=== PATIENT | female | born 1960 | race Caucasian/White ===

== ENCOUNTER → 2020-06-18 06:51 | Outpatient (CLI) | payer MEDICARE, MEDICAID, SELFPAY ==
[2020-06-18 19:41] LABS: SARS-CoV-2 RNA PCR Negative
== END ==
PROVIDERS: PCP Family Medicine; Visit Provider Nurse Practitioner Family
DX: R68.89 Other general symptoms and signs (principal); Z20.822 Contact with and (suspected) exposure to COVID-19
CPT/HCPCS: C9803; U0003; U0005

== ENCOUNTER → 2020-06-30 13:52 | Outpatient (CLI) | payer MEDICARE, MEDICAID, SELFPAY ==
--- NOTE | ~2020-06-30 | XR_ITS ---
EXAMINATION: XR chest 2V DATE: 06/30/2020 14:06 INDICATION: Wheezing and cough. TECHNIQUE: Frontal and lateral views of the chest were obtained. COMPARISON: Chest 2 views 06/27/2011 FINDINGS: The chest demonstrates clear lungs without pneumonia, pleural effusion, or pneumothorax. Th e heart size is normal. There are epidural electrodes in thoracic spine. IMPRESSION: 1. No acute cardiopulmonary disease. Reviewed, dictated and finalized at location A. 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
== END ==
PROVIDERS: PCP Nurse Practitioner Family; Visit Provider Nurse Practitioner Family
DX: R06.2 Wheezing (principal)
CPT/HCPCS: 71046

== ENCOUNTER 2020-08-19 10:42 | Outpatient (CLI) | payer MEDICARE, MEDICAID, SELFPAY ==
--- NOTE | ~2020-08-19 | CT_ITS ---
EXAMINATION:CT lung screening DATE: 08/19/2020 11:01 INDICATION: Personal history of tobacco dependence. Current smoker with 34 pack year history. TECHNIQUE: Computed tomography (CT) of the chest was performed without intravenous contrast. Automate d exposure control and iterative reconstruction technique were employed. The dose-length product (DLP ) was 203.86 mGy-cm. COMPARISON: None. FINDINGS: There is mild scarring at the lung apices. There is a 5 mm nodule in right upper lobe. Ther e is mild emphysema. There is mosaic attenuation in the lungs, likely small airways disease. There is minimal atelectasis bilaterally. There are multiple 1-2 mm nodules in the lungs with an upper lobe p redominance. No pleural effusion. The heart size is normal. There are coronary artery calcifications. No pericardial effusion. There are changes of cholecystectomy. There is a 1.9 cm cyst in left kidney . Epicardial electrodes are noted in thoracic spine. There is mild thoracic spondylosis. IMPRESSION: 1. Lung-RADS category 2: Benign appearance or behavior. Continue annual screening with noncontrast lo w-dose chest CT in 12 months. Reviewed, dictated and finalized at location B. IMPRESSION: 1. Lung-RADS category 2: Benign appearance or behavior. Continue annual screeni ng with noncontrast low-dose chest CT in 12 months.
== END 2020-08-19 10:43 | disposition home or self-care (01) ==
PROVIDERS: PCP Family Medicine; Visit Provider Family Medicine
DX: Z12.2 Encounter for screening for malignant neoplasm of respiratory organs (principal); Z87.891 Personal history of nicotine dependence
CPT/HCPCS: 71271

== ENCOUNTER 2020-08-20 13:00 | Outpatient (CLI) | payer MEDICARE, MEDICAID, SELFPAY ==
--- NOTE | ~2020-08-20 | DEXA_ITS ---
Bone Density Report Name: Elham Lopez Age: 60 Sex: Female Ethnicity: White Date of : 1960 Indication: postmenopausal; height loss; asthma or emphysema; Referring Provider: Edda Schneider Study: Bone densitometry was performed. Exam Date: August 20, 2020 Accession number: [id number] Bone Density: Region BMD T-score Z-score Classification AP Spine (L1, L2, L3) 1.148 1.2 2.6 Normal Femoral Neck (Left) 0.820 -0.3 1.0 Normal Total Hip (Left) 1.020 0.6 1.6 Normal Total Hip Bilateral Avg 1.056 0.9 1.9 Normal Femoral Neck (Right) 0.877 0.3 1.5 Normal Total Hip (Right) 1.090 1.2 2.2 Normal World Health Organization criteria for BMD impression classify patients as: Normal (T-score at or above -1.0), Osteopenia (T-score between -1.0 and -2.5), or Osteoporosis (T-score at or below -2.5). 10-year Fracture Risk: FRAX not reported because: All T-scores for Spine Total, Hip Total, Femoral Neck at or above -1.0 Clinical Information Provided by Patient: Smokes Has used the following medications: Vitamin D Has the following medical conditions: Asthma or Emphysema Patient maximum height was 64.7 Menopause Age: 50 No regular weight bearing exercise Drinks caffeinated beverages Onset of menses at age 9 Number of children 0 Impression: The patient has normal bone mass. The patient has risk factors, including: smoking. Discussion: BONE DENSITY IS ABOVE THE MINIMUM DESIRABLE LEVEL AT ALL SKELETAL SITES TESTED. This patient?s bone mineral density is above the minimum desirable level (T-score -1.0 or better) at all sites measured. The patient should follow a healthful lifestyle (good nutrition with adequate calcium and vitamin D, and appropriate weight-bearing exercise). Follow-Up: Consider repeating this study in 5 years or sooner if there is some new clinical indication. Reported by: [facility] on 08/20/2020 1:32:00 PM. Reviewed, dictated and finalized at location AMartinez DE OLIVEIRA
== END 2020-08-20 13:01 | disposition home or self-care (01) ==
PROVIDERS: PCP Family Medicine; Visit Provider Family Medicine
DX: Z78.0 Asymptomatic menopausal state (principal)
CPT/HCPCS: 77080

== ENCOUNTER → 2020-09-25 09:39 | Outpatient (CLI) | payer MEDICARE, MEDICAID, SELFPAY ==
--- NOTE | ~2020-09-25 | XR_ITS ---
EXAMINATION: XR knee LT 3V DATE: 09/25/2020 11:53 INDICATION: Joint disorder. TECHNIQUE: 3 views of left knee were obtained. COMPARISON: None. FINDINGS: Bone alignment is normal. No fracture. There is mild tricompartmental osteoarthritis. No kn ee joint effusion. IMPRESSION: 1. Mild left knee osteoarthritis. Reviewed, dictated and finalized at location B.
--- NOTE | ~2020-09-25 | XR_ITS ---
EXAMINATION: HAND-JUSTA ARTHRITIS 3+VIEWS DATE: 09/25/2020 11:52 INDICATION: Arthritis TECHNIQUE: Posteroanterior, lateral, and oblique views of the left and of the right hands as well as a ballcatchers view of both hands were obtained. COMPARISON: None. FINDINGS: There is flexion at the bilateral fifth proximal interphalangeal joints. Bone alignment is otherwise normal at both hands. No fractures. Polyarticular osteoarthritis at both hands, moderate severity at the left first metacarpophalangeal joint and otherwise mild at the bilateral triscaphe, first carpome tacarpal, right first metacarpophalangeal and multiple bilateral interphalangeal joints. No cortical erosions to suggest inflammatory arthritis. Soft tissues are unremarkable. IMPRESSION: 1. Symmetric flexion at the bilateral first proximal interphalangeal joints which could be either eit her transitional artifact of positioning or due to Dupuytren's contractures. 2. Typical distribution of relatively symmetric polyarticular osteoarthritis of both hands, moderate severity at the left first metacarpophalangeal joint and otherwise mild. Reviewed, dictated and finalized at location A. IMPRESSION: 1. Symmetric flexion at the bilateral first proximal interphalangeal joints whi ch could be either either transitional artifact of positioning or due to Dupuyt bar's contractures. 2. Typical distribution of relatively symmetric polyarticular osteoarthritis of both hands, moderate severity at the left first metacarpophalangeal joint and otherwise mild.
--- NOTE | ~2020-09-25 | XR_ITS ---
EXAMINATION: XR lumbar spine min 4V DATE: 09/25/2020 11:52 INDICATION: Arthritis, low back pain TECHNIQUE: Anteroposterior and lateral views of the lumbar spine, and cone-down lateral view of the l umbosacral junction were obtained. COMPARISON: None. FINDINGS: There is grade 2 anterolisthesis of L5 on S1. Vertebral body alignment is otherwise maintai kim. There is no fracture. There is severe loss of intervertebral disc space height at L5-S1. A neuro stimulator device is implanted in the posterior subcutaneous tissues on the right. Its leads entering the central spinal canal at the T12-L1 level. There appear to be bilateral pars defects at L5. Surgi sarah clips in the right upper quadrant are likely from prior cholecystectomy. Calcified atherosclerosi s is noted. IMPRESSION: 1. Grade 2 anterolisthesis of L5 on S1 with possible L5 pars defects. No acute findings. Reviewed, dictated and finalized at location A.
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
--- NOTE | ~2020-09-25 | XR_ITS ---
EXAMINATION: XR knee RT 3V DATE: 09/25/2020 11:51 INDICATION: Joint disorder. TECHNIQUE: 3 views of right knee were obtained. COMPARISON: None. FINDINGS: Bone alignment is normal. No fracture. There is mild tricompartmental osteoarthritis. No kn ee joint effusion. IMPRESSION: 1. Mild right knee osteoarthritis. Reviewed, dictated and finalized at location B.
== END ==
PROVIDERS: PCP Family Medicine; Visit Provider Nurse Practitioner Family
DX: M47.817 Spondylosis without myelopathy or radiculopathy, lumbosacral region (principal); M18.0 Bilateral primary osteoarthritis of first carpometacarpal joints; M19.042 Primary osteoarthritis, left hand; M19.041 Primary osteoarthritis, right hand; M20.11 Hallux valgus (acquired), right foot; M20.5X1 Other deformities of toe(s) (acquired), right foot; M19.072 Primary osteoarthritis, left ankle and foot; M19.071 Primary osteoarthritis, right ankle and foot; M21.42 Flat foot [pes planus] (acquired), left foot; M17.0 Bilateral primary osteoarthritis of knee; R21 Rash and other nonspecific skin eruption
CPT/HCPCS: 72110; 73130; 73562; 73620

== ENCOUNTER → 2020-12-12 03:49 | Outpatient (CLI) | payer MEDICARE, MEDICAID, SELFPAY ==
[2020-12-13 04:02] LABS: SARS-CoV-2 RNA PCR Negative
== END ==
PROVIDERS: PCP Family Medicine; Visit Provider Nurse Practitioner Family
DX: Z20.822 Contact with and (suspected) exposure to COVID-19 (principal)
CPT/HCPCS: C9803; U0003; U0005

== ENCOUNTER 2022-03-10 10:13 | Outpatient (CLI) | payer MEDICARE, MEDICAID, SELFPAY ==
--- NOTE | 2022-03-10 14:04 | WPDPFTINT ---
PFT Procedure Performed PFT Procedure Performed Spirometry with Pre/Post Bronchodilator Plethysmography (Lung Vol) Diffusing Cap (DLCO) Flow Vol Loop Spirometry w/o Bronchodil PFT Interpretation Lung volumes were measured with the body plethysmography method. Lung volumes are essentially unremarkable. Spirometry showed diminished expiratory flow rates and a diminished FEV1 to FVC ratio 65%, indicative of obstructive airway disease. Following administration of a bronchodilator, there was no significant increase in expiratory flow rates. Lung diffusion capacity is within the normal range at 78% predicted. The flow-volume loop is consistent with obstructive airway disease. Impression: Moderate obstructive airway disease with no response to bronchodilators on this testing. Lung diffusion capacity within the normal range.
== END 2022-03-10 10:14 | disposition home or self-care (01) ==
LOC: ANHPFT 10:14
PROVIDERS: PCP Family Medicine; Visit Provider Family Medicine
DX: J45.20 Mild intermittent asthma, uncomplicated (principal); R94.2 Abnormal results of pulmonary function studies
CPT/HCPCS: 94060; 94726; 94729

== ENCOUNTER 2022-12-29 10:35 | Outpatient (CLI) | payer MEDICARE, MEDICAID, SELFPAY ==
[2022-12-29 12:20] LABS: Strep Group A RT-PCR NOT DETECTED (Negative)
[2022-12-29 15:35] LABS: Influenza A QL RT-PCR Negative (Negative); Influenza B QL RT-PCR Negative (Negative); RSV RNA, RT-PCR Negative (Negative); SARS-CoV-2 RNA PCR Negative (Negative)
== END 2022-12-29 10:36 | disposition home or self-care (01) ==
LOC: ANHLAB 10:36
PROVIDERS: PCP Family Medicine; Visit Provider Family Medicine
DX: R50.9 Fever, unspecified (principal); Z20.822 Contact with and (suspected) exposure to COVID-19
CPT/HCPCS: 87637; 87651

== ENCOUNTER 2023-07-21 14:36 | Outpatient (CLI) | payer MEDICARE, MEDICAID, SELFPAY ==
--- NOTE | ~2023-07-21 | XR_ITS ---
Left Hand Technique: PA, oblique, and lateral views were obtained. Clinical History: Injury Findings: There is an oblique, intra-articular, displaced fracture along the dorsal aspect of the bas e of the fifth middle phalanx. There is an oblique, mildly displaced fracture involving the distal po rtion of the fourth middle phalanx. No definite intra-articular extension of this fracture.. There is mild degenerative change of the first metacarpophalangeal joint. Soft tissues are unremarkable. Impression: Oblique, and articular, displaced fracture involving the dorsal aspect of the base the fifth middle p halanx. Oblique, dorsal displaced fracture of the fourth middle phalangeal shaft. Reviewed, dictated and finalized at location M. Impression: Oblique, and articular, displaced fracture involving the dorsal aspect of the b ase the fifth middle phalanx. Oblique, dorsal displaced fracture of the fourth middle phalangeal shaft.
--- NOTE | ~2023-07-21 | XR_ITS ---
Cervical Spine: AP, lateral, open-mouth views Clinical History: Pain Findings: No acute fracture seen. There is 3 mm anterolisthesis of C3 over C4. There is severe degene rative disc narrowing throughout cervical spine. There is moderate to severe facet arthropathy throug hout. Pre-vertebral soft tissues are unremarkable. Impression: No acute fracture seen. Consider CT for more sensitive evaluation, as indicated. 3 mm anterolisthesis of C3 over C4. Severe degenerative spondylosis throughout cervical spine. Reviewed, dictated and finalized at [facility]. Impression: No acute fracture seen. Consider CT for more sensitive evaluation, as indicated . 3 mm anterolisthesis of C3 over C4. Severe degenerative spondylosis throughout cervical spine.
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
== END 2023-07-21 14:37 ==
PROVIDERS: PCP Family Medicine; Visit Provider Nurse Practitioner Family
DX: S19.9XXA Unspecified injury of neck, initial encounter (principal); S37.031A Laceration of right kidney, unspecified degree, initial encounter; S69.92XA Unspecified injury of left wrist, hand and finger(s), initial encounter; T14.8XXA Other injury of unspecified body region, initial encounter; M43.02 Spondylolysis, cervical region; S62.92XA Unspecified fracture of left hand, initial encounter for closed fracture; M85.88 Other specified disorders of bone density and structure, other site
CPT/HCPCS: 72040; 73030; 73120

== ENCOUNTER 2023-07-28 12:36 | Outpatient (CLI) | payer MEDICARE, MEDICAID, SELFPAY ==
--- NOTE | ~2023-07-28 | CT_ITS ---
EXAMINATION: CT abdomen pelvis wo con DATE: 07/28/2023 13:13 INDICATION: Laceration to the right kidney. TECHNIQUE: Computed tomography (CT) of the abdomen and pelvis was performed without intravenous contr ast. The dose-length product was 1085.44 mGy-cm. Automated exposure control and iterative reconstruct ion technique were employed. COMPARISON: None. FINDINGS: Lung bases are unremarkable. Heart size normal. No significant pleural or pericardial effus ion. There is a 2 cm exophytic right renal cyst. There are cholecystectomy clips. There is 2.3 cm lef t renal cyst. The spleen, pancreas, adrenal glands are unremarkable. Nonobstructive bowel gas pattern . No contrast was administered to assess for renal laceration. There is abnormal soft tissue masses i n the anterior abdominal wall of the right lower abdomen, largest measuring 7.6 x 4.8 cm. A midline m ass measures 5.9 x 3.6 cm with fluid density. No abnormal pelvic masses or fluid collections. No sign ificant vascular abnormality. There is grade 2 spondylolisthesis at L5-S1 with complete loss of disc space at this level. IMPRESSION: 1. Lobulated soft tissue masses anterior abdominal wall soft tissues of the lower abdomen. No contras t administered. Considerations include posttraumatic hematoma, infection and less likely malignancy. Correlate for history of recent trauma or infection. 2: Bilateral renal cysts. Reviewed, dictated and finalized at location B. IMPRESSION: 1. Lobulated soft tissue masses anterior abdominal wall soft tissues of the low er abdomen. No contrast administered. Considerations include posttraumatic rolan art, infection and less likely malignancy. Correlate for history of recent tra susanne or infection. 2: Bilateral renal cysts.
== END 2023-07-28 12:37 ==
PROVIDERS: PCP Family Medicine; Visit Provider Nurse Practitioner Family
DX: S37.031A Laceration of right kidney, unspecified degree, initial encounter (principal); V89.2XXA Person injured in unspecified motor-vehicle accident, traffic, initial encounter; N28.1 Cyst of kidney, acquired; R19.09 Other intra-abdominal and pelvic swelling, mass and lump
CPT/HCPCS: 74176

== ENCOUNTER 2023-08-03 15:27 | Outpatient (CLI) | payer MEDICARE, MEDICAID, SELFPAY ==
--- NOTE | ~2023-08-03 | CT_ITS ---
EXAMINATION: CT hand LT wo con DATE: 08/03/2023 15:46 INDICATION: Left hand fracture. TECHNIQUE: Computed tomography (CT) of the left hand was performed without intravenous contrast. Auto mated exposure control and iterative reconstruction technique were employed. The dose-length product was 553.59 mGy-cm. COMPARISON: Left hand radiographs 07/21/2023 FINDINGS: Bone alignment is normal. There is a comminuted fracture of base of fifth middle phalanx. T he main distal fracture fragment demonstrates 4 mm proximal displacement and 2 mm palmar displacement . There is a comminuted fracture of neck and diaphysis of fourth middle phalanx. The main distal frac ture fragment demonstrates one shaft width dorsal displacement, 5 degrees dorsal angulation, and shor tening. There is mild osteoarthritis of triscaphe joint and first carpometacarpal joint. There is sev ere osteoarthritis of first metacarpophalangeal joint. There is mild osteoarthritis of some of the in terphalangeal joints. There is severe osteoarthritis of fifth distal interphalangeal joint. IMPRESSION: 1. Comminuted fracture of base of fifth middle phalanx. 2. Comminuted fracture of fourth middle phalanx. Reviewed, dictated and finalized at location A.
--- NOTE | ~2023-08-03 | XR_ITS ---
Left Hand Technique: PA, oblique, and lateral views were obtained. Clinical History: Fracture Findings: There is an acute, oblique, mildly displaced fracture of the distal shaft of the fourth mid dle phalanx. No intra-articular extension. There is an oblique, intra-articular, displaced fracture o f the dorsal aspect of the base of the fifth middle phalanx, with volar subluxation of the dominant p ortion of the fifth middle phalanx. No other fracture or dislocation seen. Joint spaces are otherwise preserved. Soft tissues are unremarkable. Impression: Acute, oblique, assess fracture of the distal shafts of the fourth middle phalanx. Oblique, intra-articular, displaced fracture of the dorsal aspect of the base the fifth middle phalan x, as detailed above. Reviewed, dictated and finalized at location M. Impression: Acute, oblique, assess fracture of the distal shafts of the fourth middle phala nx. Oblique, intra-articular, displaced fracture of the dorsal aspect of the base t he fifth middle phalanx, as detailed above.
== END 2023-08-03 15:28 | disposition home or self-care (01) ==
LOC: ANHIMG 15:29
PROVIDERS: PCP Family Medicine; Visit Provider Plastic Surgery
DX: S62.92XA Unspecified fracture of left hand, initial encounter for closed fracture (principal)
CPT/HCPCS: 73130; 73200

== ENCOUNTER 2023-09-05 10:51 | Outpatient (CLI) | payer MEDICARE, MEDICAID, SELFPAY ==
--- NOTE | ~2023-09-05 | XR_ITS ---
Left Hand Technique: PA, oblique, and lateral views were obtained. Clinical History: Fracture COMPARISON: 08/03/2023 Findings: Mild interval healing of displaced fracture with intra-articular extension at the base of t he fifth middle phalanx. There is persistent volar subluxation of the majority of the fifth middle ph alanx. There is partial interval healing of oblique mildly displaced fracture of the fourth middle ph alanx, with early callus formation. There is now more radiographically apparent transverse healing leonard bacute fractures the proximal shaft of the fifth proximal phalanx, essentially nondisplaced. Soft tis sues are unremarkable. Impression: Routine interval healing of fractures of the fourth and fifth middle phalanges. The fifth middle phal angeal fracture is intra-articular, and there is persistent volar subluxation of the majority of the fifth middle phalanx. Additional subacute healing transverse nondisplaced fracture of the proximal shaft of the fifth proxi mal phalanx. This fracture was radiographically occult on prior radiographs. Reviewed, dictated and finalized at [facility]. Impression: Routine interval healing of fractures of the fourth and fifth middle phalanges. The fifth middle phalangeal fracture is intra-articular, and there is persiste nt volar subluxation of the majority of the fifth middle phalanx. Additional subacute healing transverse nondisplaced fracture of the proximal sh aft of the fifth proximal phalanx. This fracture was radiographically occult on prior radiographs.
== END 2023-09-05 10:52 | disposition home or self-care (01) ==
PROVIDERS: PCP Family Medicine; Visit Provider Physician Assistant Surgical
DX: S62.625D Displaced fracture of middle phalanx of left ring finger, subsequent encounter for fracture with routine healing (principal); S62.627D Displaced fracture of middle phalanx of left little finger, subsequent encounter for fracture with routine healing; X58.XXXD Exposure to other specified factors, subsequent encounter
CPT/HCPCS: 73130

== ENCOUNTER 2024-02-01 00:07 | Day surgery (SDC) | payer MEDICARE, MEDICAID, SELFPAY ==
[2024-01-10 13:53] VITALS: BMI 39.7
[2024-02-01 09:23] VITALS: BP 139/84; PULSE 99; RESP 18; TEMP 36.2; O2SAT 96; BMI 36.1
[2024-02-01] MEDS: LACTATED RINGERS 1,000 ML 150 ML IV CONT (09:34)
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
[2024-02-01] MEDS: SIMETHICONE ORAL SUSPENSION 20 MG/0.3 ML 30 ML BOTTLE 0.6 ML IRRIGATION (10:16)
[2024-02-01 10:31] VITALS: BP 103/68; PULSE 95; RESP 22; O2SAT 96
[2024-02-01 10:41] VITALS: BP 125/79; PULSE 80; RESP 23; O2SAT 94
[2024-02-01 10:51] VITALS: BP 152/83; PULSE 80; RESP 20; O2SAT 100
== END 2024-02-01 10:58 | disposition home or self-care (01) ==
PROVIDERS: PCP Family Medicine; Referring Provider Nurse Practitioner; Visit Provider Internal Medicine Gastroenterology
PROC: 0DJD8ZZ Inspection of Lower Intestinal Tract, Via Natural or Artificial Opening Endoscopic (ICD-10-PCS; CPT 45378; principal; 2024-02-01 10:00)
DX: Z12.11 Encounter for screening for malignant neoplasm of colon (principal); Z86.0100 Personal history of colon polyps, unspecified; I10 Essential (primary) hypertension; E78.5 Hyperlipidemia, unspecified; E03.9 Hypothyroidism, unspecified; L40.50 Arthropathic psoriasis, unspecified; L40.9 Psoriasis, unspecified; G47.33 Obstructive sleep apnea (adult) (pediatric); M05.89 Other rheumatoid arthritis with rheumatoid factor of multiple sites; K21.9 Gastro-esophageal reflux disease without esophagitis; J45.909 Unspecified asthma, uncomplicated; F41.9 Anxiety disorder, unspecified; M81.0 Age-related osteoporosis without current pathological fracture; E55.9 Vitamin D deficiency, unspecified; F17.210 Nicotine dependence, cigarettes, uncomplicated; E66.9 Obesity, unspecified; Z68.36 Body mass index [BMI] 36.0-36.9, adult; Z79.51 Long term (current) use of inhaled steroids
CPT/HCPCS: G0105; J2003; J2704; J7120

== ENCOUNTER 2024-06-27 12:42 | Outpatient (CLI) | payer MEDICARE, MEDICAID, SELFPAY ==
--- OUTSIDE RECORDS SUMMARY | 2024-06-27 14:10 | XMS_ITS | Referral Summary ---
Author Organization [facility] Address [address] [place] [address] Care Team Providers Care Executive Recruiter Name Role Phone Carlton Schneider MD Primary Care Provider Allergies Active Allergy Reactions Criticality Noted Date Comments Amoxicillin Itching,Rash Medium 05/19/2018 Patient stated can take if given Benadryl . Cefadroxil Itching,Rash Medium 05/19/2018 Patient stated can take if given Benadryl . Cephalexin Itching,Rash Medium 05/19/2018 Patient stated can take if given Benadryl . Penicillins Itching,Rash Medium 05/19/2018 Patient stated can take if given Benadryl . Medications HYDROcodone-rand taminophen (NORCO) 10-325 mg per tabletIndicatio ns:Pain every 4 (four) hours as needed. 05/17/2018 Active levothyroxine (SYNTHROID, LEVOTHROID) 150 mcg tablet daily. 1 04/07/[address] (PROTONIX) 20 mg EC tablet daily. 2 05/08/2018 Active POTASSIUM CHLORIDE ER 10 mEq CR capsule daily. 1 04/07/2018 Acti ve furosemide (LASIX) 40 mg tablet Take 40 mg by mouth daily. Active PNV 16-iron fum,ps-folic-om eg3 35-1-200 mg capsuleIndicati ons:stop 5 days before surgery Take by mouth daily. Active cholecalciferol (VITAMIN D-3) 5,000 unit tablet daily. Active fish oil-dha-epa 1,200-144-216 mg capsuleIndicati ons:stop 5 days before surgery Take 1 capsule by mouth daily. Active ibuprofen (ADVIL,MOTRIN) 800 mg tabletIndicatio ns:stop 5 days before surgery Take 800 mg by mouth every 6 (six) hours as needed for pain. Active busPIRone (BUSPAR) 5 mg tabletIndicatio ns:Generalized Anxiety Disorder Take 5 mg by mouth 3 (three) times a day. Active Active Problems Problem Noted Date Diagnosed Date Spondylolisthesis at L5-S1 level 05/18/2018 Overview (05/18/2018): Added automatically from request for surgery [id number] Social History Tobacco Use Types Packs/Day Years Used Date Smoking Tobacco: Every Day Cigarettes Smokeless Tobacco: Never Tobacco Cessation:Ready to Q uit: Yes; Counseling Given: Yes Alcohol Use Standard Drinks/Week Comments No 0 (1 standard drink = 0.6 oz pur e alcohol) Comments No Sex and Gender Information Value Date Recorded Sex Assigned at Not on file Legal Sex Female 9:20 AM ORNAMENTAL METAL ERECTOR Gender Identity Not on file Sexual Orientation Not on file Last Filed Vital Signs Vital Sign Reading Time Taken Comments Blood Pressure 168/88 05/26/2018 10:32 AM ORNAMENTAL METAL ERECTOR Pulse 102 05/26/2018 10:32 AM ORNAMENTAL METAL ERECTOR Temperature 36.3 C (97.3 F) 05/26/2018 10:32 AM ORNAMENTAL METAL ERECTOR Respiratory Rate 24 05/26/2018 10:32 AM ORNAMENTAL METAL ERECTOR Oxygen Saturation 93% 05/26/2018 10:32 AM ORNAMENTAL METAL ERECTOR Inhaled Oxygen Concentration - - Weight 104.3 kg (230 lb) 08/25/2020 1:05 PM CDT Height 160 cm (5' 3 ) 08/25/2020 1:05 PM CDT Body Mass Index 40.74 08/25/2020 1:05 PM CDT Plan of Treatment Not on file Medical Devices Implanted Type Area Quality Improvement Consultant Device Identifier Shelf Expiration Date Model / Serial / Lot [employer] 1192 [employer] [place] Lead - [id number] Implanted:Qty: 2 on 05/26/2018 by Jack Herrera MD at [facility] N/A: Spine Thoracic [employer] 05/02/2020 1192 / / [id number] [employer] [id number] Octrode 60cm 8 Electrode Lead Percutaneous Kit Neurostimulator - [id number] Implanted:Qty: 1 on 05/26/2018 by Jack Herrera MD at [facility] N/A: Spine Thoracic [employer] 02/16/2020 [id number] / / [id number] [employer] 3186ans Octrode 60cm 8 Electrode Lead Percutaneous Kit Neurostimulator - [id number] Implanted:Qty: 1 on 05/26/2018 by Jack Herrera MD at [facility] N/A: Spine Thoracic [employer] 02/16/2020 [id number] / / [id number] [employer] 3662 Proclaim Elite 2.63inx1.98in 7 Ipg Implantable Recharge Free - [id number] Implanted:Qty: 1 on 05/26/2018 by Jack Herrera MD at [facility] N/A: Back [employer] 03/06/2020 3662 / / [id number] Procedures Procedure Name Priority Date/Time Associated Diagnosis Comments SCREENING MAMMOGRAM BILATERAL W PRECIOUS Schedule Routine, Read Routine (OP Routine) 12/30/2022 1:52 PM CDT Screening mammogram, encounter for COLONOSCOPY 08/18/2012 12:00 AM CDT from Last 3 Months or Most Recently Relevant to Health Maintenance Results * Screening Mammogram Bilateral W Precious (12/30/2022 1:52 PM CDT) Anatomical Region Laterality Modality Breast Bilateral Mammography 12/30/2022 2:54 PM CDT Impressions 12/30/2022 2:54 PM CDT There is no mammographic evidence of malignancy. A 1 year screening mammogram is recommended. BI-RADS: 1 - Negative. The patient has been or will be contacted. The patient will be entered into a reminder system with a target due date of 1 year for her next mammogram. Electronically signed by: ALEJANDRO Blake 12/30/2022 2:54 PM CDT EXAMINATION: SCREENING MAMMOGRAM BILATERAL W PRECIOUS ORDERING HEALTHCARE PROVIDER: SELF SCREENING MAMMOGRAM HISTORY: Routine screening mammography. COMPARISON: 08/25/2020, 03/13/2018, 08/02/2016, 06/30/2015. TECHNIQUE: CC and MLO views of both breasts were obtained with digital technique using digital breast tomosynthesis with C view. Computer aided detection was utilized. FINDINGS: DENSITY: The breasts have scattered areas of fibroglandular density. BREASTS: There is no new suspicious finding in either breast on mammogram. us Self Screening Mammogram IMG MAMMO PROCEDURES Fi nal Result * COLONOSCOPY (08/18/2012 12:00 AM CDT) Anatomical Region Laterality Modality Other Narrative 08/18/2012 12:00 AM CDT Ordered by an unspecified provider. Procedure Note Provider, MD Za - 08/18/2012 12:00 AM CDT PROCEDURE REPORT Patient: KAREN LOPEZ Account: [id number] Room No: : 1960 Patient Type: [facility] Attend.: Lashawn Parker M.D. Admit Date: 08/18/2012 Dict.: Lashawn Parker M.D. Disch. Date: 08/18/2012 NAME OF PROCEDURE: COLONOSCOPY BRIEF HISTORY AND PHYSICAL: The patient is a 52-year-old white female.Last colonoscopy was 2005. The patient has history of colon polyps. Nofamily history of colon cancer. PROCEDURE: Sedation was provided by anesthesia service. The procedureof colonoscopy including the indications and possible complications ofbleeding, infection, and perforation requiring surgery was discussed with thepatient and consent was obtained. Rectal exam prior to colonoscopy was unremarkable.The scope was introduced into the rectum and advanced to the cecum which was identified by the ileocecal valve and the appendiceal orifice. Theterminal ileum was intubated and appeared normal. The cecum, ascending colon,and transverse colon were unremarkable. The descending colon wasunremarkable. There were 3 small 3 mm to 5 mm semisessile or flat polyps noted in thesigmoid colon. All were removed by cold biopsy forceps. The rectum wasunremarkable. Retroflexion in the rectum noted with small internal hemorrhoids. GI IMPRESSION 1. Three small flat polyps with benign appearance in the sigmoid colonremoved by cold biopsy forceps. 2. Small internal hemorrhoids. RECOMMENDATIONS 1. Follow pathology report. 2. Repeat colonoscopy in five years if any polyp is adenoma. Lashawn Parker M.D. CATARINO/paulo TD: 08/18/2012 22:09 CC: Dr. Beatrice Rahman Authenticated by Lashawn Parker MD On 09/03/2012 08:50:11 PM Historical Provider ENDOSCOPY PROCEDURES Devora l Result from Last 3 Months or Most Recently Relevant to Health Maintenance Insurance MEDICARE [facility] MEDICARE IDPA Care Teams Executive Recruiter Relationship Specialty Start Date End Date Carlton Schneider MD PCP - General 08/25/20
--- OUTSIDE RECORDS SUMMARY | 2024-06-27 14:10 | XMS_ITS | Clinical Summary ---
Author Organization [facility] Address [address] [place] [address] Care Team Providers Care Layboy Tender Name Role Phone Carlton Schneider MD Primary [...] (05/18/2018): Added automatically from request for surgery [id number] Surgical History Surgery Date Site/Laterality Comments CHOLECYSTECTOMY BILATERAL TEMPOROMANDIBULAR JOINT ARTHROPLASTY KNEE ARTHROSCOPY Left and left foot tendon repair BREAST BIOPSY 05/02/1989 - 05/01/1990 Left benign Medical History Medical History Date Comments Hyperlipidemia Hypertension improved and no medications 05/19/18 Asthma Seasonal Induced GERD (gastroesophageal reflux disease) Hypothyroidism Neuropathy (CMS/HCC) feet Arthritis back, right hip and pelvis Gout DJD (degenerative joint disease) Family History Medical History Relation Name Comments Breast cancer Cousin paternal Relation Name Status Comments Cousin paternal Alive Social History Tobacco Use Types Packs/Day Years Used Date Smoking Tobacco: Every Day Cigarettes Smokeless Tobacco: Never Tobacco Cessation:Ready to Q uit: Yes; Counseling Given: Yes Alcohol Use Standard Drinks/Week Comments No 0 (1 standard drink = 0.6 oz pur e alcohol) Comments No Sex and Gender Information Value Date Recorded Sex Assigned at Not on file Legal Sex Female 9:20 AM WEAVER HAND Gender Identity Not on file Sexual Orientation Not on file Obstetrics History Para Term AB IAB SAB Ectopic Multiple Livin g Live Births 0 0 0 0 0 0 0 0 0 0 0 Last Filed Vital Signs Vital Sign Reading Time Taken Comments Blood Pressure 168/88 05/26/2018 10:32 AM WEAVER HAND Pulse 102 05/26/2018 10:32 AM WEAVER HAND Temperature 36.3 C (97.3 F) 05/26/2018 10:32 AM WEAVER HAND Respiratory Rate 24 05/26/2018 10:32 AM WEAVER HAND Oxygen Saturation 93% 05/26/2018 10:32 AM WEAVER HAND Inhaled Oxygen Concentration - - Weight 104.3 kg (230 lb) 08/25/2020 1:05 PM CDT Height 160 cm (5' 3 ) 08/25/2020 1:05 PM CDT Body Mass Index 40.74 08/25/2020 1:05 PM CDT Plan of Treatment Health Maintenance Due Date Last Done Comments Cervical Cancer Screening 1960 Depression Screening 1960 Hepatitis C Screening 1960 Hepatitis B Screening 1978 Regular Well Visit/Exam 18-64 1978 Pneumococcal vaccine <65 (1 of 2 - PCV) 1979 Zoster Vaccine (1 of 2) 2010 Colon Cancer Screening-Colonoscopy 08/18/2022 08/18/2012 Breast Cancer Screening-Mammogram 12/31/2023 12/30/2022, 08/25/2020, 03/13/2018, Additional history exists Influenza Vaccine (#1) 2024 , 01/11/2019, 03/30/2018, Additional history exists DTaP/Tdap/Td Vaccine (3 - Td or Tdap) 07/10/2033 07/11/2023, 02/21/2014 Colon Cancer Screening-CT Colonography Discontinued 08/18/2012 Colon Cancer Screening-DNA Stool Discontinued 08/19/19 13 Colon Cancer Screening-FIT Discontinued 08/18/2012 Colon Cancer Screening-Sigmoidoscopy Discontinued 08/18/2012 Medical Devices Implanted Type Area Workshop Manager Device Identifier Shelf Expiration Date Model / Serial / Lot [employer] 1192 [employer] [place] Lead - [id number] Implanted:Qty: 2 on 05/26/2018 by Jack Herrera MD at [facility] N/A: Spine Thoracic [employer] 05/02/2020 1192 / / [id number] [employer] 3186ans Octrode 60cm 8 Electrode Lead Percutaneous Kit Neurostimulator - [id number] Implanted:Qty: 1 on 05/26/2018 by Jack Herrera MD at [facility] N/A: Spine Thoracic [employer] 02/16/2020 [id number] / / [id number] [employer] 3186ans Octrode 60cm 8 Electrode Lead Percutaneous Kit Neurostimulator - [id number] Implanted:Qty: 1 on 05/26/2018 by Jack Herrera MD at [facility] N/A: Spine Thoracic [employer] 02/16/2020 [id number] / / [id number] [employer] 3662 Proclaim Elite 2.63inx1.98in 7 Ipg Implantable Recharge Free - [id number] Implanted:Qty: 1 on 05/26/2018 by Jack Herrera MD at [facility] N/A: Back [employer] 03/06/2020 3662 / / [id number] Procedures Procedure Name Priority Date/Time Associated Diagnosis [...] her next mammogram. Electronically signed by: ALEJANDRO CURRIE Narrative 12/30/2022 2:54 PM CDT EXAMINATION: SCREENING MAMMOGRAM [...] CDT PROCEDURE REPORT Patient: KAREN LOPEZ Account: [id number] Room No: : 1960 Patient Type: SDS Attend.: Lashawn Parker M.D. Admit Date: 08/18/2012 Dict.: Lasahwn Parker M.D. Disch. Date: 08/18/2012 NAME OF [...] five years if any polyp is adenoma. Attila Loza/paulo TD: 08/18/2012 22:09 CC: Dr. Beatrice Rahman Authenticated by Lashawn Parker MD On 09/03/2012 08:50:11 PM Historical Provider ENDOSCOPY PROCEDURES Devora l Result from Last 3 Months or Most Recently Relevant to Health Maintenance Insurance MEDICARE IDPA MEDICARE IDPA Care Teams Layboy Tender Relationship Specialty Start Date End Date Carlton Schneider MD PCP - General 08/25/20
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
--- OUTSIDE RECORDS SUMMARY | 2024-06-27 14:10 | XMS_ITS | Referral Summary ---
Author Organization [facility] Address [address] [place] [address] Care Team Providers Care Board Writer Name Role Phone Carlton Schneider MD Primary Care Provider Source Comments [facility],non-owned Affiliates and Associated Physician Practices is amultiple site organization consisting of ambulatory clinics and hospital sitesin [place], [place], [place] and [place]. This disclosure is being madepursuant to the Care Everywhere program and may not contain all information available regarding this patient. Last updated 18.[facility] Allergies Active Allergy Reactions Criticality Noted Date [...] (rheumatoid arthritis) 07/11/2023 GERD (gastroesophageal reflux disease) Hypothyroidism 07/11/2023 Psoriasis 07/11/2023 Contusion of abdominal [...] 07/11/2023 5:20 PM CDT Plan of Treatment Not on file Advance Directives * Full Code (Latest Code Status on File) Date Activated Date Inactivated Comments 07/11/2023 7:50 PM 07/12/2023 3:09 AM Care Teams Board Writer Relationship Specialty Start Date End Date Carlton Schneider MD [address] [place] [place] [id number] PCP - General Family Medicine 07/11/23
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
== END 2024-06-27 12:43 | disposition home or self-care (01) ==
PROVIDERS: PCP Family Medicine; Visit Provider Family Medicine
DX: Z78.0 Asymptomatic menopausal state (principal); M85.88 Other specified disorders of bone density and structure, other site
CPT/HCPCS: 77080

== ENCOUNTER 2024-07-04 10:29 | Outpatient (CLI) | payer MEDICARE, MEDICAID, SELFPAY ==
--- NOTE | ~2024-07-04 | CT_ITS ---
EXAMINATION:CT lung screening DATE: 07/04/2024 10:46 INDICATION: Personal history of nicotine dependence. Current smoker with 48 pack year history. TECHNIQUE: Computed tomography (CT) of the chest was performed without intravenous contrast. Automate d exposure control and iterative reconstruction technique were employed. The dose-length product (DLP ) was 178.13 mGy-cm. COMPARISON: Chest CT 08/19/2020 FINDINGS: There is mild scarring at the lung apices. There are numerous 1-2 mm nodules in the lungs w ith an upper lung predominance. There is mild emphysema. There is mild atelectasis on the left. No pl eural effusion. The heart size is normal. There are coronary artery calcifications. No pericardial ef fusion. There are changes of cholecystectomy. There is a 2.7 cm cyst in left kidney. There is mild th oracic spondylosis. IMPRESSION: 1. Lung-RADS category 2: Benign appearance or behavior. Continue annual screening with noncontrast lo w-dose chest CT in 12 months. Reviewed, dictated and finalized at location A. SITTER IMPRESSION: 1. Lung-RADS category 2: Benign appearance or behavior. Continue annual screeni ng with noncontrast low-dose chest CT in 12 months.
--- OUTSIDE RECORDS SUMMARY | 2024-07-04 11:51 | XMS_ITS | Clinical Summary ---
Author Organization [facility] Address [address] [place] [address] Care Team Providers Care Humidifier Attendant Name Role Phone Carlton Schneider MD Primary [...] (05/18/2018): Added automatically from request for surgery [id number] Surgical History Surgery Date Site/Laterality Comments CHOLECYSTECTOMY BILATERAL TEMPOROMANDIBULAR JOINT ARTHROPLASTY KNEE ARTHROSCOPY Left and left foot tendon repair BREAST BIOPSY 05/02/1989 - 05/01/1990 Left benign Medical History Medical History Date Comments Hyperlipidemia Hypertension improved and no medications 05/19/18 Asthma Seasonal Induced GERD (gastroesophageal reflux disease) Hypothyroidism Neuropathy feet Arthritis back, right hip and pelvis [...] on file Legal Sex Female 9:20 AM TRADE UNION OFFICIAL Gender Identity Not on file Sexual Orientation Not on file Obstetrics History Para Term AB IAB SAB Ectopic Multiple Livin g Live Births 0 0 0 0 0 0 0 0 0 0 0 Last Filed Vital Signs Vital Sign Reading Time Taken Comments Blood Pressure 168/88 05/26/2018 10:32 AM TRADE UNION OFFICIAL Pulse 102 05/26/2018 10:32 AM TRADE UNION OFFICIAL Temperature 36.3 C (97.3 F) 05/26/2018 10:32 AM TRADE UNION OFFICIAL Respiratory Rate 24 05/26/2018 10:32 AM TRADE UNION OFFICIAL Oxygen Saturation 93% 05/26/2018 10:32 AM TRADE UNION OFFICIAL Inhaled Oxygen Concentration - - Weight 104.3 [...] Discontinued 08/18/2012 Medical Devices Implanted Type Area Valve Repairer Device Identifier Shelf Expiration Date Model / Serial / Lot [employer] 1192 [employer] [place] Lead - [id number] Implanted:Qty: 2 on 05/26/2018 by Jack Herrera MD at [facility] N/A: Spine Thoracic [employer] 05/02/2020 1192 / / [id number] [employer] 3186ans Octrode 60cm 8 Electrode Lead Percutaneous Kit Neurostimulator - [id number] Implanted:Qty: 1 on 05/26/2018 by Jack Herrera MD at [facility] N/A: Spine Thoracic [employer] 02/16/2020 [id number] / / [id number] [employer] 3186ans Octrode 60cm 8 Electrode Lead Percutaneous Kit Neurostimulator - [id number] Implanted:Qty: 1 on 05/26/2018 by Jack Herrera MD at [facility] N/A: Spine Thoracic [employer] 02/16/2020 [id number] / / [id number] [employer] 3662 [employer] Elite 2.63inx1.98in 7 Ipg Implantable Recharge Free - [id number] Implanted:Qty: 1 on 05/26/2018 by Jack Herrera MD at [facility] N/A: Back [employer] 03/06/2020 3662 / / [id number] Procedures Procedure Name Priority Date/Time Associated Diagnosis [...] Ordered by an unspecified provider. Procedure Note ProviderZa MD - 08/18/2012 12:00 AM CDT PROCEDURE REPORT Patient: KAREN LOPEZ Account: [id number] Room No: : 1960 Patient Type: SDS [...] Lashawn Parker MD On 09/03/2012 08:50:11 PM us Historical Provider ENDOSCOPY PROCEDURES Devora l Result from Last 3 Months or Most Recently Relevant to Health Maintenance Insurance MEDICARE IDPA MEDICARE IDPA Care Teams Humidifier Attendant Relationship Specialty Start Date End Date Carlton Schneider MD PCP - General 08/25/20
--- OUTSIDE RECORDS SUMMARY | 2024-07-04 11:51 | XMS_ITS | Referral Summary ---
Author Organization [facility] Address [address] [place] [address] Care Team Providers Care Steam Press Operator Name Role Phone Carlton Schneider MD Primary Care Provider Source Comments [facility],non-owned Affiliates and Associated Physician Practices is amultiple site organization consisting of ambulatory clinics and hospital sitesin [place], [place], [place] and [place]. This disclosure is being madepursuant to the Care Everywhere program and may not contain all information available regarding this patient. Last updated 18.[facility] Allergies Active Allergy Reactions Criticality Noted Date [...] 7:50 PM 07/12/2023 3:09 AM Care Teams Steam Press Operator Relationship Specialty Start Date End Date Carlton Schneider MD [address] [place] [address] [place] [id number] PCP - General Family Medicine 07/11/23
--- OUTSIDE RECORDS SUMMARY | 2024-07-04 11:51 | XMS_ITS | Referral Summary ---
Author Organization [facility] Address [address] [place] [address] Care Team Providers Care Exhibition Carver Name Role Phone Carlton Schneider MD Primary [...] (05/18/2018): Added automatically from request for surgery [id number] Social History Tobacco Use Types Packs/Day Years Used Date Smoking Tobacco: Every Day Cigarettes Smokeless Tobacco: Never Tobacco Cessation:Ready to Q uit: Yes; Counseling Given: Yes Alcohol Use Standard Drinks/Week Comments No 0 (1 standard drink = 0.6 oz pur e alcohol) Comments No Sex and Gender Information Value Date Recorded Sex Assigned at Not on file Legal Sex Female 9:20 AM HAT BLOCKER Gender Identity Not on file Sexual Orientation Not on file Last Filed Vital Signs Vital Sign Reading Time Taken Comments Blood Pressure 168/88 05/26/2018 10:32 AM HAT BLOCKER Pulse 102 05/26/2018 10:32 AM HAT BLOCKER Temperature 36.3 C (97.3 F) 05/26/2018 10:32 AM HAT BLOCKER Respiratory Rate 24 05/26/2018 10:32 AM HAT BLOCKER Oxygen Saturation 93% 05/26/2018 10:32 AM HAT BLOCKER Inhaled Oxygen Concentration - - Weight 104.3 kg (230 lb) 08/25/2020 1:05 PM CDT Height 160 cm (5' 3 ) 08/25/2020 1:05 PM CDT Body Mass Index 40.74 08/25/2020 1:05 PM CDT Plan of Treatment Not on file Medical Devices Implanted Type Area Imaging Scheduler Device Identifier Shelf Expiration Date Model / Serial / Lot [employer] 1192 [employer] [place] Lead - [id number] Implanted:Qty: 2 on 05/26/2018 by Jack Herrera MD at [facility] N/A: Spine Thoracic [employer] 05/02/2020 1192 / / [id number] [employer] 3186ans Octrode 60cm 8 Electrode Lead Percutaneous Kit Neurostimulator - [id number] Implanted:Qty: 1 on 05/26/2018 by Jack Herrera MD at [facility] N/A: Spine Thoracic [employer] 02/16/2020 [id number] / / [id number] [employer] 3186ans Octrode 60cm 8 Electrode Lead Percutaneous Kit Neurostimulator - [id number] Implanted:Qty: 1 on 05/26/2018 by Jack Herrera MD at [facility] N/A: Spine Thoracic [employer] 02/16/2020 [id number] / / [id number] [employer] 3662 [employer] Elite 2.63inx1.98in 7 Ipg Implantable Recharge Free - [id number] Implanted:Qty: 1 on 05/26/2018 by Jack Herrera MD at [facility] N/A: Back [employer] 03/06/2020 3662 / / [id number] Procedures Procedure Name Priority Date/Time Associated Diagnosis [...] CDT PROCEDURE REPORT Patient: KAREN LOPEZ Account: [id number] Room No: : 1960 Patient Type: [facility] Attend.: Lashawn Parker M.D. Admit Date: 08/18/2012 [...] Recently Relevant to Health Maintenance Insurance MEDICARE [facility] MEDICARE IDPA Care Teams Exhibition Carver Relationship Specialty Start Date End Date Carlton Schneider MD PCP - General 08/25/20
--- OUTSIDE RECORDS SUMMARY | 2024-07-04 11:51 | XMS_ITS | Clinical Summary ---
Author Organization [facility] [employer] Address [address] [place] [address] Care Team Providers Care Sewage Treatment Plant Operator Name Role Phone Carlton Schneider MD Primary Care Provider Source Comments [facility] [employer],non-owned Affiliates and Associated Physician Practices is amultiple site organization consisting of ambulatory clinics and hospital sitesin [place], [place] and [place]. This disclosure is being madepursuant to the Care Everywhere program and may not contain all information available regarding this patient. Last updated 18.[facility] [employer] Allergies Active Allergy Reactions Criticality Noted Date [...] 7:50 PM 07/12/2023 3:09 AM Care Teams Sewage Treatment Plant Operator Relationship Specialty Start Date End Date Carlton Schneider MD [address] [place] [address] [place] [id number] PCP - General Family Medicine 07/11/23
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
== END 2024-07-04 10:30 | disposition home or self-care (01) ==
PROVIDERS: PCP Family Medicine; Visit Provider Family Medicine
DX: Z12.2 Encounter for screening for malignant neoplasm of respiratory organs (principal); Z87.891 Personal history of nicotine dependence
CPT/HCPCS: 71271